=== PATIENT | female | born 1980 | race African-American/Black ===

== ENCOUNTER 2017-04-18 07:32 | Emergency (ER) | payer OTHER ==
[2017-04-18] MEDS ORDERED: Lidocaine 1% 20 ML MDV ONE (08:05)
[2017-04-18] MEDS ORDERED: HYDROcodone/Acetaminophen 10/325 mg Tablet ONE (08:09)
[2017-04-18] MEDS ORDERED: Amoxicillin/Potassium Clav 500 MG TAB ONE (08:11)
[2017-04-18] MEDS ORDERED: cefTRIAXone\\ROCEPHIN 500 MG VIAL ONE (08:11)
[2017-04-18] MEDS ORDERED: Fluconazole 100 MG TAB ONE (08:11)
[2017-04-18] MEDS ORDERED: Naproxen 500 MG TAB ONE (08:11)
[2017-04-18] MEDS ORDERED: Azithromycin 250 MG TAB ONE (08:29)
== END 2017-04-18 08:35 | disposition home or self-care (01) ==
LOC: MADERS 07:32
DX: K03.81 Cracked tooth (principal); N89.8 Other specified noninflammatory disorders of vagina; F41.9 Anxiety disorder, unspecified; F31.9 Bipolar disorder, unspecified
CPT/HCPCS: 96372; J0696; J2001

== ENCOUNTER 2017-05-12 13:36 | Emergency (ER) | payer OTHER | END 2017-05-12 14:32 | disposition home or self-care (01) | LOC: MADERS 13:36 | DX: K02.9 Dental caries, unspecified (principal); F41.9 Anxiety disorder, unspecified; F31.9 Bipolar disorder, unspecified; F17.210 Nicotine dependence, cigarettes, uncomplicated | CPT/HCPCS: 99282 ==

== ENCOUNTER 2017-09-25 15:08 | Emergency (ER) | payer MEDICAID ==
[2017-09-25] MEDS ORDERED: Tetracaine 0.5% OPHTH SOLN/PF 4 ML BOT ONE (15:32)
== END 2017-09-25 15:47 | disposition home or self-care (01) ==
LOC: MADERS 15:08
DX: H57.8 Other specified disorders of eye and adnexa (principal); F41.9 Anxiety disorder, unspecified; F31.9 Bipolar disorder, unspecified; F17.210 Nicotine dependence, cigarettes, uncomplicated; Z79.899 Other long term (current) drug therapy
CPT/HCPCS: 99283